=== PATIENT | male | born 1990 | race African-American/Black ===

== ENCOUNTER 2019-01-06 13:07 | Observation (INO) | payer OTHER ==
--- NOTE | 2019-01-06 13:39 | ED Physician Documentation ---
Psychological Disorders - HISTORIAN Historian: patient - HPI Stated Complaint: suicidal ideations Chief Complaint: Psychological Disorder Onset: other (today ) Intent: suicide Severity: moderate (He states [facility] and the worker at the [employer] [facility] was shaking his bed and he feels this triggered his PTSD and he is afraid he will hurt someone at the home and due to this feels he is now feeling suicidal. HE would jump in front of a car/bus ) Situational Problems: Yes Related To: other (living [facility] [employer] ) - Associated Symptoms Symptoms: depressed, angry, frustrated, agitated, hostile, paranoid Suicidal: specific plan Ingestion: wanted to "escape" - ROS CONST: none - PAST HX Psychiatric problems: depression Lung, Cardiac, DM: COPD Allergies/Adverse Reactions: Allergies Allergy/AdvReac Type Severity Reaction Status Date / Time NSAIDS (Non-Steroidal Allergy Verified 01/06/19 13:39 Anti-Inflamma - Social HX Smoking History: cigarettes Drug Use: none - Family HX Family HX: other. denies: mental illness - VITAL SIGNS Vital Signs: Vital Signs Temp Pulse Resp BP Pulse Ox 99.6 F 73 20 106/67 99 01/07/19 08:58 01/07/19 08:58 01/07/19 08:58 01/07/19 08:58 01/07/19 08:58 - REVIEWED ASSESSMENTS Nursing Assessment Reviewed: Yes Vitals Reviewed: Yes Progress - Progress Progress: 1545: resting room quietly DG 1620: appears to be sleeping - no distress noted DG 1745: up and eating dinner is aware we are contacting places for placement - no complaints DG 1925: will move pt to floor for obs with sitter due to no beds for accepting facilities DG ED Results Lab/Radiology - Lab Results Lab Results: Lab Results 01/06/19 01/06/19 01/06/19 16:35 16:25 14:42 WBC RBC Hgb Hct MCV MCH MCHC RDW Plt Count Neut % (Auto) Lymph % (Auto) [place] % (Auto) Eos % (Auto) Baso % (Auto) Neut # (Auto) Lymph # (Auto) [place] # (Auto) Eos # (Auto) Baso # (Auto) Sodium Potassium Chloride Carbon Dioxide Anion Gap BUN Creatinine Estimated Creat Clear Est GFR ( Amer) Est GFR (Non-Af Amer) Glucose Calcium Total Bilirubin AST ALT Alkaline Phosphatase Total Protein Albumin TSH 0.640 mIU/l mIU/l (0.465-4.685) Free T4 Direct 1.03 ng/dL ng/dL (0.78-2.19) Free T3 Index Scanned report Urine Color Yellow (YELLOW) Urine Appearance Clear (CLEAR) Urine pH 7.0 (5.0 - 8.0) Ur Specific [place] 1.025 (1.010-1.030) Urine Protein Negative mg/dL mg/dL (NEGATIVE) Urine Ketones Negative mg/dL mg/dL (NEGATIVE) Urine Occult Blood Negative (NEGATIVE) Urine Nitrite Negative (NEGATIVE) Urine Bilirubin Negative (NEGATIVE) Urine Urobilinogen 0.2 Eu Eu (0.2-1.0) Ur Leukocyte Esterase Negative (NEGATIVE) Urine Glucose Negative mg/dL mg/dL (NEGATIVE) Opiates Screen Negative ng/mL ng/mL (<300) Oxycodone Screen Negative ng/mL ng/mL (<100) Methadone Screen Negative ng/mL ng/mL (<200) Ur Barbiturates Screen Negative ng.mL ng.mL (<200) Tricyclic Antidepress Negative ng/mL ng/mL (<300) Phencyclidine Screen Negative ng/mL ng/mL (< 25) Amphetamines Screen Negative ng/mL ng/mL (<500) U Methamphetamines Scrn Negative ng/mL ng/mL (<500) MDMA Negative ng/mL ng/mL (<500) Benzodiazepines Screen Negative ng/mL ng/mL (<150) Urine Cocaine Screen Negative ng/mL ng/mL (<150) U Cannabinoids Screen Negative ng/mL ng/mL (< 50) 01/06/19 01/06/19 14:42 14:42 WBC 6.70 K/ul K/ul (4.00-12.00) RBC 4.10 M/ul M/ul (3.90-5.20) Hgb 13.4 g/dL g/dL (12.0-18.0) Hct 39.8 % % (37.0-53.0) MCV 97.0 fl fl (80.0-100.0) MCH 32.7 pg pg (28.0-34.0) MCHC 33.6 g/dL g/dL (30.0-36.0) RDW 14.8 % H % (11.3-14.3) Plt Count 409 K/mm3 H K/mm3 (130-400) Neut % (Auto) 53.6 % % (39.0-79.0) Lymph % (Auto) 38.4 % % (16.0-50.0) [place] % (Auto) 6.0 % % (0.0-11.0) Eos % (Auto) 1.5 % % (0.0-6.8) Baso % (Auto) 0.5 % % (0.0-1.5) Neut # (Auto) 3.6 # k/uL # k/uL (1.4-7.7) Lymph # (Auto) 2.6 # k/uL # k/uL (0.6-4.0) [place] # (Auto) 0.4 # k/uL # k/uL (0.0-0.9) Eos # (Auto) 0.1 # k/uL # k/uL (0.0-0.6) Baso # (Auto) 0.0 # k/uL # k/uL (0.0-0.5) Sodium 143 mmol/L mmol/L (137-145) Potassium 3.8 mmol/L mmol/L (3.5-5.1) Chloride 103 mmol/L mmol/L (98-107) Carbon Dioxide 29 mmol/L mmol/L (22-30) Anion Gap 14.8 BUN 8 mg/dL L mg/dL (9-20) Creatinine 0.89 mg/dL mg/dL (0.66-1.25) Estimated Creat Clear 147 Est GFR ( Amer) > 60 (60 - ) Est GFR (Non-Af Amer) > 60 (60 - ) Glucose 98 mg/dL mg/dL (74-106) Calcium 9.7 mg/dL mg/dL (8.4-10.2) Total Bilirubin 0.6 mg/dL mg/dL (0.2-1.3) AST 31 U/L U/L (15-46) ALT 37 U/L U/L (13-69) Alkaline Phosphatase 80 U/L U/L (38-126) Total Protein 8.4 g/dL H g/dL (6.3-8.2) Albumin 4.6 g/dL g/dL (3.5-5.0) TSH Free T4 Direct Free T3 Index Urine Color Urine Appearance Urine pH Ur Specific [place] Urine Protein Urine Ketones Urine Occult Blood Urine Nitrite Urine Bilirubin Urine Urobilinogen Ur Leukocyte Esterase Urine Glucose Opiates Screen Oxycodone Screen Methadone Screen Ur Barbiturates Screen Tricyclic Antidepress Phencyclidine Screen Amphetamines Screen U Methamphetamines Scrn MDMA Benzodiazepines Screen Urine Cocaine Screen U Cannabinoids Screen - Orders Orders: ED Orders Category Date Time Status Activity as ordered D Care 01/06/19 19:49 Active Do Not Give Influenza Vaccine 1T Care 01/06/19 19:49 Active Do Not Give Pneumococcal Vacci 1T Care 01/06/19 19:49 Active Document Bowel Movement Q8H Care 01/06/19 19:49 Active ED Provider NOW Care 01/06/19 20:00 Ordered IV Started NOW Care 01/06/19 13:48 Active No VTE Prophylaxis Needed .Once Care 01/06/19 19:49 Active Observation NOW Care 01/06/19 20:00 Ordered Discovery Guide Consult [CONS] Routine Cons 01/06/19 Ordered Regular Diet 01/07/19 Breakfast Completed Regular Diet 01/07/19 Breakfast Completed CBC/PLATELET/DIFF Stat Lab 01/06/19 14:42 Completed CMP Stat Lab 01/06/19 14:42 Completed THYROID PANEL (TSH, FT3, FT4) Stat Lab 01/06/19 14:42 Completed UA MACRO DIP ONLY Routine Lab 01/06/19 16:25 Completed UDS [DRUG SCREEN URINE MEDICAL ONLY] Routine Lab 01/06/19 16:35 Completed 0.9 % Sodium Chloride [Normal Saline] 1,000 ml Med 01/06/19 13:48 Discontinued IV NOW HYDROcodone /APAP 5/325 [[place] 5/325] Med 01/06/19 13:49 Discontinued 1 each PO NOW ONE clonazePAM [KlonoPIN] Med 01/06/19 13:49 Discontinued 0.5 mg PO NOW ONE EKG WITH COMPARISON Stat Ther 01/06/19 Completed Psych Physical Exam - Physical Exam General Appearance: no acute distress, alert ENT: nml ENT inspection Eyes: PERRL Mental Status: tearful, mood/affect nml Suicide Attempts: denies Orientation: nml x3 Cranial Nerves: CN's intact as tested Sensory, Motor: nml motor response Neck/Back: normal inspection Respiratory: no resp distress CVS: reg rate & rhythm Abdomen: non-tender Skin: warm/dry Extremities: non-tender Discharge Clincal Impression: Suicidal ideation Comments: OBS due to no beds available. DG Condition: Serious Disposition: ADMITTED INPATIENT Decision to Admit: [id number] Date of Decison to Admit: 01/06/19 Decision Time: 19:30
[2019-01-06] MEDS ORDERED: 0.9 % SODIUM CHLORIDE 1,000 ML IV ONE (13:48)
[2019-01-06] MEDS ORDERED: HYDROcodone /APAP 5/325 1 EACH TABLET PO ONE (13:49)
[2019-01-06] MEDS ORDERED: clonazePAM 0.5 MG TABLET PO ONE (13:49)
[2019-01-06 14:45] LABS: BASOPHILS % 0.5 % (0.0-1.5); NEUTROPHILS # 3.6 # k/uL (1.4-7.7)
[2019-01-06 14:55] LABS: eGFR (Non-African) > 60
[2019-01-06 17:22] LABS: CANNABINOIDS NEGATIVE ng/mL (< 50); METHYLENEDIOXYMETHAMPHETAMINE NEGATIVE ng/mL (<500)
[2019-01-06 17:23] LABS: APPEARANCE,URINE CLEAR (CLEAR); COLOR,URINE YELLOW (YELLOW); OCCULT BLOOD,URINE NEGATIVE (NEGATIVE); UROBILINOGEN URINE 0.2 Eu (0.2-1.0)
[2019-01-06 20:13] VITALS: BMI 26.8
[2019-01-06] MEDS ORDERED: clonazePAM 0.5 MG TABLET PO PRN (21:08)
[2019-01-07] MEDS: oxyCODONE/ACETAMINOPHEN 5/325 TABLET PO PRN ×2 (02:08→09:10)
[2019-01-07 08:59] VITALS: BP 106/67
== END 2019-01-09 15:55 | disposition home or self-care (01) ==
LOC: ED 13:07 → SOUTH 19:55
PROVIDERS: ADMIT Nurse Practitioner Family; ATTEND Nurse Practitioner Family
DX: R45.851 Suicidal ideations (principal)
CPT/HCPCS: 80053; 80377; 81002; 84439; 84443; 84481; 85025; 93005; 96360; 99282; 99284; A9270; G0378; J7030; G0481; S1016